=== PATIENT | male | born 1975 | race African-American/Black ===

== ENCOUNTER 2019-11-26 14:03 | Inpatient (IN) | payer MEDICARE, MEDICAID ==
[~2019-11-26] VITALS: Ht 177.8 cm; Wt 95.5 kg
[2019-11-26] MEDS ORDERED: IPRATROPIUM BROM 0.5 MG/2.5ML INH SOL NEB ONE (14:15)
[2019-11-26] MEDS ORDERED: ALBUTEROL SULF 2.5 MG/0.5ML(0.5%) NEB SOLN NEB ONE (14:15)
[2019-11-26] MEDS ORDERED: methylPREDNISolone SOD SUCC 125 MG/2 ML VL IV ONE (14:15)
[2019-11-26] MEDS ORDERED: cloNIDine HCL 0.1 MG TAB PO ONE (14:15)
[2019-11-26 15:07] LABS: Basophils # (auto) 0.1 10 ^3/uL (0-0.2); Basophils % (auto) 0.8 % (0.0-2.0); Eosinophils # (auto) 0.7 10 ^3/uL (0-0.8); Eosinophils % (auto) 8.5 % (0.0-7.0); Hematocrit 47.3 % (41.0-53.0); Hemoglobin 15.6 g/dL (13.5-17.5); Lymphocytes # (auto) 0.9 10 ^3/uL (0.4-5.4); Lymphocytes % (auto) 10.7 % (10.0-50.0); Mean Corpuscular Hemoglobin 29.4 pg (28.0-32.0); Mean Corpuscular Hgb Conc. 32.9 g/dL (32.0-36.0); Mean Corpuscular Volume 89.4 fL (80.0-100.0); Monocytes # (auto) 0.6 10 ^3/uL (0-1.3); Monocytes % (auto) 7.5 % (0.0-12.0); Neutrophils # (auto) 5.8 10 ^3/uL (1.6-8.6); Neutrophils % (auto) 72.5 % (37.0-80.0); Nucleated Red Blood Cells % 0.9 %; Platelet Count (auto) 223 10^3/uL (140-450); Red Cell Distribution Width 14.7 % (11.8-14.3); White Blood Cell 8.1 10^3/uL (4.4-10.8)
[2019-11-26 15:19] LABS: Alanine Aminotransferase 30 U/L (16-61); Albumin 3.8 g/dL (3.4-5.0); Anion Gap 4 (5-15); Aspartate Aminotransferase 24 U/L (15-37); BUN/Creatinine Ratio 11.8; Blood Urea Nitrogen 14 mg/dL (7-18); Calcium 8.9 mg/dL (8.5-10.1); Carbon Dioxide 28 mmol/L (21-32); Chloride 105 mmol/L (98-107); GFR African American 86 mL/min; GFR Non-African American 71 mL/min; Glucose 82 mg/dL (74-106); Potassium 3.7 mmol/L (3.5-5.1); Sodium 137 mmol/L (136-145)
[2019-11-26 15:24] LABS: Alkaline Phosphatase 91 U/L (45-117); Bilirubin, Total 0.8 mg/dL (0.2-1.0); Total Protein 7.2 g/dL (6.4-8.2)
[2019-11-26] MEDS ORDERED: LABETALOL HCL 5 MG/ML 4ML SYRINGE IV ONE (15:30)
[2019-11-26] MEDS ORDERED: MORPHINE SULF INJ 2 MG/ML SYRINGE 1ML IV PRN ×3 (19:00→20:30)
[2019-11-26] MEDS ORDERED: NITROGLYCERIN 0.4 MG SL TAB SL PRN ×2 (19:00→20:30)
[2019-11-26] MEDS ORDERED: METOPROLOL TARTRATE 1MG/1ML-5ML VIAL IV ONE (19:15)
[2019-11-26] MEDS ORDERED: LORazepam 2MG/ML-1ML VIAL IV ONE (19:15)
[2019-11-26] MEDS ORDERED: METOPROLOL TARTRATE 1MG/1ML-5ML VIAL IV PRN (19:30)
[2019-11-26] MEDS ORDERED: TRIA0.1O TOP (19:46)
[2019-11-26] MEDS ORDERED: OMEP20TA PO (19:46)
[2019-11-26] MEDS ORDERED: ALBUAER3 IN (19:46)
[2019-11-26] MEDS ORDERED: MULT-1018 PO (19:46)
[2019-11-26] MEDS ORDERED: FLUT500M2 INH (19:46)
[2019-11-26] MEDS ORDERED: HYD25TP TOP (19:46)
[2019-11-26] MEDS ORDERED: LORA-154 PO (19:46)
[2019-11-26] MEDS ORDERED: FLUT50SP (19:47)
[2019-11-26 20:05] LABS: Urine Bacteria NONE SEEN /hpf (None Seen); Urine Blood Negative /uL (Negative); Urine Specific Gravity 1.009 (1.001-1.035); Urine WBC 1 /hpf (0 - 3)
[2019-11-26] MEDS ORDERED: NIFEdipine ER 30 MG TAB PO ONE (20:30)
[2019-11-26] MEDS ORDERED: ONDANSETRON HCL 4 MG/2 ML VIAL IV PRN (20:30)
[2019-11-26] MEDS ORDERED: ASPirin 81 mg TAB PO ONE (20:30)
[2019-11-26] MEDS ORDERED: ACETAMINOPHEN 325 MG TAB PO PRN (20:30)
[2019-11-26] MEDS ORDERED: ALUM & MAG HYDROX-SIMETH LIQ(MAALOX) 30 ML PO PRN (20:30)
[2019-11-26] MEDS ORDERED: DOXYCYCLINE 100MG/250ML 250 ML IV ONE (20:30)
[2019-11-26] MEDS ORDERED: METOPROLOL SUCCINATE XL 50 MG TAB PO ONE (20:30)
[2019-11-26] MEDS ORDERED: ENOXAPARIN SOD 40 MG/0.4 ML SYRINGE SC ONE (20:30)
[2019-11-26] MEDS ORDERED: ATORVASTATIN 20 MG TAB PO ONE (20:30)
[2019-11-26] MEDS ORDERED: HYDROcodone-ACET 5/325MG TAB PO PRN (20:30)
[2019-11-26] MEDS ORDERED: DOCUSATE SOD 100 MG CAP PO PRN (20:30)
[2019-11-26] MEDS ORDERED: LORazepam 0.5 MG TAB PO PRN (20:30)
[2019-11-26] MEDS ORDERED: PANTOPRAZOLE 40 MG/10 ML VIAL INJ IV ONE (20:45)
[2019-11-26 21:01] LABS: Cholesterol 173 mg/dL (< 200); Triglycerides 106 mg/dL (< 150)
[2019-11-26 21:04] LABS: HDL Cholesterol 51 mg/dL (40-59); LDL Cholesterol 108 mg/dL (< 100)
[2019-11-26 21:23] VITALS: BP 160/100
[2019-11-26 21:33] LABS: Amphetamine Screen, Urine NEGATIVE (NEGATIVE); Barbiturate Scree,Urine NEGATIVE (NEGATIVE); Benzodiazephine Screen, Urine NEGATIVE (NEGATIVE); Cannabinoid Screen, Urine POSITIVE (NEGATIVE); Cocaine Screen, Urine NEGATIVE (NEGATIVE); Opiate Scree,Urine NEGATIVE (NEGATIVE); Phencyclidine Screen, Urine NEGATIVE (NEGATIVE)
[2019-11-26 22:00] VITALS: BP 155/106
[2019-11-26 23:00] VITALS: BP 155/106
[2019-11-26] MEDS: IPRATROPIUM BROM 0.5 MG/2.5ML INH SOL NEB SCH (23:02)
[2019-11-26] MEDS: BUDESONIDE (INHALATION) 0.5 MG/2 ML NEB NEB SCH (23:02)
[2019-11-27] MEDS: IPRATROPIUM BROM 0.5 MG/2.5ML INH SOL NEB SCH ×6 (02:00→22:02)
[2019-11-27 05:39] VITALS: BP 161/95
[2019-11-27] MEDS: hydrALAZINE HCL 25 MG TAB PO PRN ×2 (05:41→22:52)
[2019-11-27] MEDS ORDERED: FUROSEMIDE 20 MG/2 ML VIAL IV SCH (06:00)
[2019-11-27] MEDS: BUDESONIDE (INHALATION) 0.5 MG/2 ML NEB NEB SCH ×2 (06:20→22:02)
[2019-11-27 08:00] VITALS: BP 157/96
[2019-11-27] MEDS ORDERED: LISINOPRIL 10 MG TAB PO SCH (10:00)
[2019-11-27] MEDS: NIFEdipine ER 30 MG TAB PO SCH (10:29)
[2019-11-27] MEDS: METOPROLOL SUCCINATE XL 50 MG TAB PO SCH (10:31)
[2019-11-27] MEDS: ENOXAPARIN SOD 40 MG/0.4 ML SYRINGE SC SCH (10:39)
[2019-11-27] MEDS: PANTOPRAZOLE 40 MG/10 ML VIAL INJ IV SCH (10:41)
[2019-11-27] MEDS: DOXYCYCLINE 100MG/250ML 250 ML IV SCH ×2 (10:42→21:35)
[2019-11-27 12:00] VITALS: BP 157/98
[2019-11-27 17:00] VITALS: BP 158/98
[2019-11-27 20:00] VITALS: BP 151/104
[2019-11-27] MEDS: ATORVASTATIN 20 MG TAB PO SCH ×2 (21:35→21:48)
[2019-11-27] MEDS: LISINOPRIL 10 MG TAB PO SCH (21:35)
[2019-11-27 22:00] VITALS: BP 151/104
[2019-11-28] MEDS: IPRATROPIUM BROM 0.5 MG/2.5ML INH SOL NEB SCH ×6 (02:00→22:58)
[2019-11-28 05:00] VITALS: BP 148/82
[2019-11-28 08:00] VITALS: BP 150/93
[2019-11-28] MEDS: ENOXAPARIN SOD 40 MG/0.4 ML SYRINGE SC SCH (10:00)
[2019-11-28] MEDS: PANTOPRAZOLE 40 MG/10 ML VIAL INJ IV SCH (10:04)
[2019-11-28] MEDS: TRIAMTERENE/HCTZ 37.5/25 MG CAP/TAB PO SCH (10:06)
[2019-11-28] MEDS: NIFEdipine ER 30 MG TAB PO SCH (10:06)
[2019-11-28] MEDS: DOXYCYCLINE 100MG/250ML 250 ML IV SCH ×2 (10:07→22:47)
[2019-11-28] MEDS: METOPROLOL SUCCINATE XL 50 MG TAB PO SCH (10:07)
[2019-11-28] MEDS: LISINOPRIL 10 MG TAB PO SCH ×2 (10:07→22:48)
[2019-11-28] MEDS: BUDESONIDE (INHALATION) 0.5 MG/2 ML NEB NEB SCH ×2 (10:19→22:58)
[2019-11-28 12:00] VITALS: BP 159/94
[2019-11-28 16:53] VITALS: BP 140/98
[2019-11-28 22:00] VITALS: BP 134/97
[2019-11-28] MEDS: ATORVASTATIN 20 MG TAB PO SCH (22:48)
[2019-11-29] MEDS: IPRATROPIUM BROM 0.5 MG/2.5ML INH SOL NEB SCH ×4 (02:38→14:10)
[2019-11-29 05:00] VITALS: BP 137/108
[2019-11-29 06:22] LABS: Basophils # (auto) 0.1 10 ^3/uL (0-0.2); Basophils % (auto) 0.6 % (0.0-2.0); Eosinophils # (auto) 0.8 10 ^3/uL (0-0.8); Eosinophils % (auto) 7.2 % (0.0-7.0); Hematocrit 50.8 % (41.0-53.0); Hemoglobin 17.2 g/dL (13.5-17.5); Lymphocytes # (auto) 1.5 10 ^3/uL (0.4-5.4); Lymphocytes % (auto) 14.4 % (10.0-50.0); Mean Corpuscular Hemoglobin 30.2 pg (28.0-32.0); Mean Corpuscular Hgb Conc. 33.9 g/dL (32.0-36.0); Mean Corpuscular Volume 89.2 fL (80.0-100.0); Monocytes % (auto) 9.1 % (0.0-12.0); Neutrophils # (auto) 7.3 10 ^3/uL (1.6-8.6); Neutrophils % (auto) 68.7 % (37.0-80.0); Nucleated Red Blood Cells % 0.1 %; Platelet Count (auto) 225 10^3/uL (140-450); Red Cell Distribution Width 14.6 % (11.8-14.3); White Blood Cell 10.7 10^3/uL (4.4-10.8)
[2019-11-29 06:34] LABS: Calcium 9.3 mg/dL (8.5-10.1); Potassium 3.8 mmol/L (3.5-5.1)
[2019-11-29 08:00] VITALS: BP 137/91
[2019-11-29] MEDS: DOXYCYCLINE 100MG/250ML 250 ML IV SCH (09:57)
[2019-11-29] MEDS: ENOXAPARIN SOD 40 MG/0.4 ML SYRINGE SC SCH (09:57)
[2019-11-29] MEDS: TRIAMTERENE/HCTZ 37.5/25 MG CAP/TAB PO SCH (09:57)
[2019-11-29] MEDS: LISINOPRIL 10 MG TAB PO SCH (09:58)
[2019-11-29] MEDS: NIFEdipine ER 30 MG TAB PO SCH (09:59)
[2019-11-29] MEDS: METOPROLOL SUCCINATE XL 50 MG TAB PO SCH (09:59)
[2019-11-29] MEDS: PANTOPRAZOLE 40 MG/10 ML VIAL INJ IV SCH (10:00)
[2019-11-29 12:00] VITALS: BP 160/94
[2019-11-29] MEDS: BUDESONIDE (INHALATION) 0.5 MG/2 ML NEB NEB SCH (14:10)
[2019-11-29 15:57] VITALS: BP 137/91
== END 2019-11-29 19:00 | disposition home or self-care (01) | DRG 202 ==
LOC: ER 14:03 → EDBD 14:03 → TELE 14:04 → TELE-CENTR 20:30
PROVIDERS: ADMIT Hospitalist; ATTEND Internal Medicine
DX: J45.901 Unspecified asthma with (acute) exacerbation (principal); J44.1 Chronic obstructive pulmonary disease with (acute) exacerbation; I16.9 Hypertensive crisis, unspecified; K21.9 Gastro-esophageal reflux disease without esophagitis; K29.70 Gastritis, unspecified, without bleeding; F41.9 Anxiety disorder, unspecified; I50.9 Heart failure, unspecified; E66.9 Obesity, unspecified; E78.5 Hyperlipidemia, unspecified; I11.0 Hypertensive heart disease with heart failure; F29 Unspecified psychosis not due to a substance or known physiological condition; Z20.828 Contact with and (suspected) exposure to other viral communicable diseases; Z59.0 Homelessness; Z91.19 Patient's noncompliance with other medical treatment and regimen; Z91.81 History of falling; Z68.30 Body mass index [BMI] 30.0-30.9, adult; Z91.14 Patient's other noncompliance with medication regimen
CPT/HCPCS: 36415; 71045; 80048; 80053; 80061; 80307; 81001; 83036; 83880; 84443; 84484; 85025; 85379; 87040; 87081; 87086; 87426; 93306; 94640; 96365; 96375; C9113; G0378; J3490

== ENCOUNTER 2019-12-07 05:42 | Emergency (ER) | payer MEDICARE, MEDICAID ==
[~2019-12-07] VITALS: Ht 182.9 cm; Wt 90.7 kg
[~2019-12-07 05:42] MED LIST: ALBUAER3 IN; FLUT500M2 INH; FLUT50SP; HYD25TP TOP; LORA-154 PO; MULT-1018 PO; OMEP20TA PO; TRIA0.1O TOP
[2019-12-07 06:31] VITALS: BP 158/98
[2019-12-07] MEDS ORDERED: KETOROLAC TROMETH 60MG/2ML VIAL IM ONE (07:00)
== END 2019-12-07 10:13 | disposition home or self-care (01) ==
LOC: ER 05:42 → EDBD 05:42 → ER 10:13
DX: M54.5 Low back pain (principal); J45.909 Unspecified asthma, uncomplicated; I10 Essential (primary) hypertension; Z88.8 Allergy status to other drugs, medicaments and biological substances; Z79.899 Other long term (current) drug therapy
CPT/HCPCS: 71045